=== PATIENT | male | born 1955 | race Caucasian/White ===

== ENCOUNTER 2021-08-14 11:21 | Emergency (ER) | payer OTHER ==
[2021-08-14] MEDS ORDERED: SODIUM CHLORIDE 0.9% 1,000 ML IV STA (11:47)
[2021-08-14 11:56] LABS: BASOPHILS # (AUTO) 0.1 10^3/uL (0.0-0.1); BASOPHILS % (AUTO) 1.1 %; EOSINOPHILS # (AUTO) 0.7 10^3/uL (0.0-0.7); EOSINOPHILS % (AUTO) 7.6 %; HCT - HEMATOCRIT 41.5 % (42.0-52.0); HGB - HEMOGLOBIN 13.6 g/dL (14.0-18.0); LYMPHOCYTES # (AUTO) 1.8 10^3/uL (1.5-3.5); LYMPHOCYTES % (AUTO) 21.6 %; MEAN CORPUSCULAR HEMOGLOBIN 28.8 pg (27.0-31.0); MEAN CORPUSCULAR HGB CONC 32.8 g/dL (32.0-36.0); MEAN CORPUSCULAR VOLUME 87.9 fL (80.0-94.0); MEAN PLATELET VOLUME 8.6 fL (7.4-11.4); MONOCYTES # (AUTO) 0.7 10^3/uL (0.0-1.0); NEUTROPHILS # (AUTO) 5.2 10^3/uL (1.5-6.6); NEUTROPHILS % (AUTO) 61.3 %; PLT - PLATELET COUNT 356 10^3/uL (130-450); RED BLOOD COUNT 4.72 10^6/uL (4.70-6.10); RED CELL DISTRIBUTION WIDTH 12.6 % (12.0-15.0); WHITE BLOOD COUNT 8.5 x10^3/uL (4.8-10.8)
--- NOTE | 2021-08-14 12:05 | ED Physician Documentation ---
History of Present Illness - Stated complaint Stated Complaint: HIGH BLOOD SUGAR - Chief complaint Chief Complaint: General - Additonal information Additional information: This is a 65-year-old male with a past medical history of [facility], who presents because he is concerned his blood sugar is elevated. He has been running in the 200s sometimes in the 300s this morning it was 440. The patient admits to not adhering to diabetic diet, states that he lives on the property of another gentleman and ate dinner together nightly which is not diabetic friendly and patient is having difficulty sticking to a diabetic diet. He does take his insulin, Metformin And other medications regularly. He states that he did have a dental infection last week for which he was on amoxicillin and he is getting dentures next month therefore they did not extract the tooth at that time. Has had fatigue and he states that he has not had a sleep because "was worried I would not wake up." He has not had any other sx such as fever, chills, cough or cold symptoms, chest pain or dyspnea, abdominal pain, nausea vomiting diarrhea, dysuria though he does note he has been voiding frequently recently. Review of Systems Constitutional: reports: Reviewed and negative Eyes: reports: Reviewed and negative Ears: reports: Reviewed and negative Nose: reports: Reviewed and negative Throat: reports: Reviewed and negative, Other (had dental pain last week resolved w/ abx) Cardiac: reports: Reviewed and negative Respiratory: reports: Reviewed and negative GI: reports: Reviewed and negative : reports: Frequency. denies: Dysuria, Hesitancy, Unable to Void, Incontinent, Hematuria, Discharge Skin: reports: Reviewed and negative Musculoskeletal: reports: Reviewed and negative Neurologic: reports: Reviewed and negative Endocrine: reports: Reviewed and negative Immunocompromised: reports: Reviewed and negative PD PAST MEDICAL HISTORY - Past Medical History Past Medical History: Yes Cardiovascular: Hypertension Respiratory: None Endocrine/Autoimmune: Type 2 diabetes GI: None : None HEENT: Chronic vision loss Psych: None Musculoskeletal: None Derm: None - Past Surgical History Past Surgical History: No - Present Medications Home Medications: Ambulatory Orders Medication Instructions Recorded Confirmed Lidocaine Patch 5% [Lidoderm Patch] 1 each TOP DAILY PRN #10 patch 10/03/15 Lisinopril 20 mg PO DAILY 10/03/15 10/03/15 Sertraline HCl [Zoloft] 200 mg PO DAILY 10/03/15 10/03/15 buPROPion HCL [Bupropion HCl Sr] 200 mg PO BID 10/03/15 10/03/15 traMADol [Ultram] 50 mg PO Q6H PRN #20 tablet 10/03/15 - Allergies Allergies/Adverse Reactions: Allergies Allergy/AdvReac Type Severity Reaction Status Date / Time droperidol Allergy Anxiety Verified 08/14/21 11:35 butorphanol tartrate * AdvReac Mild Anxiety Verified 08/14/21 11:34 [From Stadol] - Social History Does the pt smoke?: No Smoking Status: Never smoker Does the pt drink ETOH?: No Does the pt have substance abuse?: No - Immunizations Immunizations are current?: Yes - POLST Patient has POLST: No PD ED PE NORMAL - Vitals Vital signs reviewed: Yes - General General: Alert and oriented X 3, No acute distress, Well developed/nourished - HEENT HEENT: Atraumatic, Moist mucous membranes, Pharynx benign - Neck Neck: Supple, no meningeal sign, No JVD - Cardiac Cardiac: RRR, No murmur, No gallop, No rub - Respiratory Respiratory: No respiratory distress, Clear bilaterally - Abdomen Abdomen: Normal bowel sounds, Soft, Non tender, Non distended - Male Male : Deferred - Rectal Rectal: Deferred - Back Back: No CVA TTP, No spinal TTP - Derm Derm: Normal color, Warm and dry, No rash - Extremities Extremities: No deformity, No tenderness to palpate, Normal ROM s pain, No edema, No calf tenderness / cord - Neuro Neuro: Alert and oriented X 3, No motor deficit, No sensory deficit, Normal speech Eye Opening: Spontaneous Motor: Obeys Commands Verbal: Oriented GCS Score: 15 - Psych Psych: Normal mood, Normal affect Results - Vitals Vitals: Vital Signs - 24 hr 08/14/21 08/14/21 11:28 12:25 Temperature 36.9 C Heart Rate 92 83 Respiratory 19 17 Rate Blood Pressure 142/80 H 156/122 H O2 Saturation 99 97 Oxygen O2 Source Room air - Labs Labs: Laboratory Tests 08/14/21 08/14/21 08/14/21 11:38 11:50 11:50 WBC 8.5 RBC 4.72 Hgb 13.6 L Hct 41.5 L MCV 87.9 MCH 28.8 MCHC 32.8 RDW 12.6 Plt Count 356 MPV 8.6 Neut # (Auto) 5.2 Lymph # (Auto) 1.8 [place] # (Auto) 0.7 Eos # (Auto) 0.7 Baso # (Auto) 0.1 Absolute Nucleated RBC 0.00 Nucleated RBC % 0.0 Sodium 136 Potassium 4.3 Chloride 103 Carbon Dioxide 24 Anion Gap 9.0 BUN 16 Creatinine 1.0 Estimated GFR (MDRD) 75 L Glucose 409 H POC Whole Bld Glucose 420 H Calcium 9.3 Total Bilirubin 0.4 AST 15 ALT 28 Alkaline Phosphatase 82 Total Protein 7.1 Albumin 3.8 Globulin 3.3 Albumin/Globulin Ratio 1.2 Lipase 47 Urine Color Urine Clarity Urine pH Ur Specific [place] Urine Protein Urine Glucose (UA) Urine Ketones Urine Occult Blood Urine Nitrite Urine Bilirubin Urine Urobilinogen Ur Leukocyte Esterase Ur Microscopic Review Urine Culture Comments 08/14/21 08/14/21 13:37 14:00 WBC RBC Hgb Hct MCV MCH MCHC RDW Plt Count MPV Neut # (Auto) Lymph # (Auto) [place] # (Auto) Eos # (Auto) Baso # (Auto) Absolute Nucleated RBC Nucleated RBC % Sodium Potassium Chloride Carbon Dioxide Anion Gap BUN Creatinine Estimated GFR (MDRD) Glucose POC Whole Bld Glucose 147 H Calcium Total Bilirubin AST ALT Alkaline Phosphatase Total Protein Albumin Globulin Albumin/Globulin Ratio Lipase Urine Color YELLOW Urine Clarity CLEAR Urine pH 5.5 Ur Specific [place] 1.015 Urine Protein NEGATIVE Urine Glucose (UA) >=1000 H Urine Ketones NEGATIVE Urine Occult Blood NEGATIVE Urine Nitrite NEGATIVE Urine Bilirubin NEGATIVE Urine Urobilinogen 0.2 (NORMAL) Ur Leukocyte Esterase NEGATIVE Ur Microscopic Review NOT INDICATED Urine Culture Comments NOT INDICATED PD MEDICAL DECISION MAKING - ED course Complexity details: reviewed results, re-evaluated patient, considered differential, d/w patient ED course: This is a 65-year-old male with past medical history of diabetes presented with elevated blood glucose at home. He does admit to not adhering to a diabetic diet and not exercising recently which is likely the cause of his elevated glucose. We obtained labs to evaluate for other causes, including urinalysis, and these were reassuring. His glucose initially was 409 he was given 1 L of normal saline as well as 6 units of IV regular insulin and his sugar went down to 147. The patient states he feels 100% better at this time, he states he feels like he "got 8 hours of sleep while being here," and is feeling much better. He was instructed to work on improved glucose management at home, diabetic diet, regular exercise and he will schedule follow-[facility] next [facility]. I reviewed return precautions in detail with the patient. Departure - Departure Disposition: Home, Self Care Clinical Impression: Hyperglycemia due to type 2 diabetes mellitus Condition: Good Instructions: ED Diabetes General Info, ED Hyperglycemia Diabetic Comments: You presented with high blood sugar as well as fatigue that was likely related to your high glucose. There are no signs of infection on your exam and your labs were reassuring. We gave you IV fluids and insulin to bring down your sugar. YOu will need to continue your diabetes medications and work on adhering to a diabetic diet to avoid regularly high glucose readings. It is also important to get regular physical activity. Try to walk 20-30 minutes a day to start. Please follow [facility] with you [facility] within 1 month.
[2021-08-14 12:11] LABS: ALBUMIN 3.8 g/dL (3.2-5.5); ALBUMIN/GLOBULIN RATIO 1.2 (1.0-2.2); BILIRUBIN,TOTAL 0.4 mg/dL (0.2-1.0); CALCIUM 9.3 mg/dL (8.5-10.3); POTASSIUM 4.3 mmol/L (3.5-5.0); TOTAL PROTEIN 7.1 g/dL (6.7-8.2)
[2021-08-14] MEDS ORDERED: INSULIN REGULAR HUMAN 100 UNIT/1 ML 10 ML MDV IVP STA (12:33)
[2021-08-14 14:01] LABS: BILIRUBIN,URINE NEGATIVE (NEGATIVE); GLUCOSE, URINE (UA) >=1000 mg/dL (NEGATIVE); KETONES,URINE (UA) NEGATIVE (NEGATIVE); LEUKOCYTE ESTERASE, URINE NEGATIVE (NEGATIVE); NITRITE,URINE NEGATIVE (NEGATIVE); OCCULT BLOOD,URINE NEGATIVE (NEGATIVE); PH,URINE 5.5 PH (5.0-7.5); PROTEIN,URINE NEGATIVE (NEGATIVE); UROBILINOGEN,URINE 0.2 (NORMAL) E.U./dL (NORMAL)
[2021-08-14 14:03] LABS: CLARITY,URINE CLEAR (CLEAR)
[2021-08-14 14:37] VITALS: BP 130/70
== END 2021-08-14 15:00 | disposition home or self-care (01) ==
LOC: ED 11:21
DX: E11.65 Type 2 diabetes mellitus with hyperglycemia (principal); Z79.4 Long term (current) use of insulin; R35.0 Frequency of micturition; I10 Essential (primary) hypertension
CPT/HCPCS: 36415; 80053; 81001; 81003; 83690; 85025; 87086; 96360; 96361; 99283